=== PATIENT | male | born 1985 | race Caucasian/White ===

== ENCOUNTER 2022-04-15 22:38 | Emergency (ER) | payer SELFPAY ==
[2022-04-15 22:49] VITALS: BP 125/78; PULSE 60; RESP 17; TEMP 98.3; BMI 26.2
== END 2022-04-15 23:19 | disposition home or self-care (01) ==
LOC: FER 22:38
DX: S62.024A Nondisplaced fracture of middle third of navicular [scaphoid] bone of right wrist, initial encounter for closed fracture (principal); W22.8XXA Striking against or struck by other objects, initial encounter
CPT/HCPCS: 73110-TC-RT-FY; 73130-TC-RT-FY; 99283-25

== ENCOUNTER 2022-04-18 13:04 | Emergency (ER) | payer SELFPAY ==
[2022-04-18 13:16] VITALS: BP 113/79; PULSE 57; RESP 18; TEMP 98.5; BMI 26.9
== END 2022-04-18 13:45 | disposition home or self-care (01) ==
LOC: FER 13:04
DX: R20.2 Paresthesia of skin (principal); S69.91XS Unspecified injury of right wrist, hand and finger(s), sequela; W20.8XXA Other cause of strike by thrown, projected or falling object, initial encounter
CPT/HCPCS: 99282-25

== ENCOUNTER 2022-05-13 13:41 | Emergency (ER) | payer OTHER ==
[2022-05-13 14:06] VITALS: BP 143/83; PULSE 68; RESP 20; TEMP 98.5; BMI 27.9
[2022-05-13] MEDS ORDERED: ACETAMINOPHEN 325 MG TABLET (FP) PO ONE (14:17)
[2022-05-13] MEDS ORDERED: ACETAMINOPHEN 325 MG TABLET (FP) ONE (14:34)
[2022-05-13 15:21] LABS: ALBUMIN 4.3 g/dl (3.4-5.0); BILIRUBIN,TOTAL 1.5 mg/dl (0.2-1); CALCIUM 9.2 mg/dl (8.5-10); TOT PROT 7.3 g/dl (6.4-8.2)
[2022-05-13 15:21] LABS: HEMATOCRIT 44.1 % (35.4-49); HEMOGLOBIN 15.8 G/dL (11.7-16.9); MCH 32.6 pg (25.7-33.7); MCHC 35.9 g/dl (32.0-35.9); MEAN CELL VOLUME 90.7 fl (80-96); MEAN PLT VOLUME 8.3 fl (7.5-11.1); PLATELET COUNT 277.5 10^3/uL (134-434); RBC 4.86 10^6/uL (4.00-5.60); RDW 13.3 % (11.9-15.9); WHITE BLOOD COUNT 4.6 10^3/uL (4.0-10.8)
[2022-05-13 16:47] LABS: PLATELET ESTIMATE ADEQUATE
== END 2022-05-13 16:55 | disposition home or self-care (01) ==
LOC: FER 13:41
DX: S39.012A Strain of muscle, fascia and tendon of lower back, initial encounter (principal); Y99.9 Unspecified external cause status
CPT/HCPCS: 36415; 71046-TC-FY; 76700-TC; 80053; 85027; 99285-25